=== PATIENT | male | born 1950 | race Caucasian/White ===

== ENCOUNTER → 2017-01-01 | Outpatient (CLI) | payer BC, MEDICARE | END | disposition home or self-care (01) | LOC: GMAB 14:12 | PROVIDERS: ATTEND Family Medicine | DX: I10 Essential (primary) hypertension (principal); R97.20 Elevated prostate specific antigen [PSA] ==

== ENCOUNTER → 2017-07-04 | Outpatient (CLI) | payer BC, MEDICARE | END | disposition home or self-care (01) | LOC: GMAB 13:20 | PROVIDERS: ATTEND Family Medicine | DX: R97.20 Elevated prostate specific antigen [PSA] (principal) ==

== ENCOUNTER → 2017-11-13 | Outpatient (CLI) | payer BC, MEDICARE | END | disposition home or self-care (01) | LOC: GMAB 14:43 | PROVIDERS: ATTEND Family Medicine | DX: N18.4 Chronic kidney disease, stage 4 (severe) (principal) ==

== ENCOUNTER → 2018-02-06 | Outpatient (CLI) | payer MEDICARE, OTHER | LOC: GMAB 13:38 | PROVIDERS: ATTEND Family Medicine | DX: R97.20 Elevated prostate specific antigen [PSA] (principal) ==

== ENCOUNTER 2018-06-20 22:54 | Emergency (ER) | payer MEDICARE, OTHER ==
[2018-06-20 23:13] VITALS: TEMP 96.9
[2018-06-20] MEDS ORDERED: CIPROFLOXACIN 500 MG TAB PO ONE (23:21)
[2018-06-20] MEDS ORDERED: metroNIDAZOLE 500 MG TAB PO ONE (23:21)
--- NOTE | 2018-06-20 23:24 | ED.PDOC ---
History of Present Illness - General Chief Complaint: Abdominal Pain Stated Complaint: abd pain Time Seen by Provider: 06/20/18 22:58 Source: patient Exam Limitations: no limitations - History of Present Illness Initial Comments: the patient is 67-year-old male presenting to the emergency room secondary to getting a foreign object stuck up his rectum. The patient had pushed a partially inflated six-inch child's toy balloon up his rectum and was unable to retrieve it. He tried for about an hour but was unable to. By the time he arrived here he was having some mild bleeding. He denies any blood thinner use. He is not having a lot of pain. No real abdominal pain. Timing/Duration: 1-3 hours Severity: moderate Improving Factors: nothing Worsening Factors: nothing Associated Symptoms: denies symptoms Allergies/Adverse Reactions: Allergies NO KNOWN ALLERGY Allergy (Verified 06/20/18 23:13) Home Medications: Ambulatory Orders Ciprofloxacin [Cipro] 500 mg PO BID #14 tab 06/20/18 Metronidazole 500 mg PO TID #14 tab 06/20/18 Review of Systems - Review of Systems Constitutional: States: no symptoms reported EENTM: States: no symptoms reported Respiratory: States: no symptoms reported Cardiology: States: no symptoms reported Gastrointestinal/Abdominal: States: see HPI Genitourinary: States: no symptoms reported Musculoskeletal: States: no symptoms reported Skin: States: no symptoms reported Neurological: States: no symptoms reported Endocrine: States: no symptoms reported All other Systems: No Change from Baseline Past Medical History (General) - Patient Medical History Hx Hypertension: Yes Hx Diabetes: No Hx Cancer: No Hx Hepatitis C: No - Vaccination History Hx Tetanus, Diphtheria Vaccination: No Hx Influenza Vaccination: No Hx Pneumococcal Vaccination: No Immunizations Up to Date: No - Social History Hx Chewing Tobacco Use: Yes - DIPS Hx Alcohol Use: Yes - OCC Hx Substance Use: No Hx Substance Use Treatment: No Hx Depression: No Family Medical History - Family History Mother Family History: Unknown Physical Exam - Physical Exam General Appearance: Alert, Comfortable, No apparent distress Eye Exam: bilateral normal Ears, Nose, Throat: hearing grossly normal Neck: full range of motion, supple Respiratory: no respiratory distress, no accessory muscle use Cardiovascular/Chest: normal peripheral pulses, no edema Peripheral Pulses: radial,right: 2+, radial,left: 2+ Gastrointestinal/Abdominal: non tender, soft Rectal Exam: other - ball palpable within the rectum. Approximately 10 cc of blood loss upon arrival. Back Exam: no CVA tenderness, no vertebral tenderness Extremity: normal range of motion, non-tender, normal inspection, no pedal edema , normal capillary refill Neurologic: dietician II-XII nml as tested, alert, normal mood/affect, oriented x 3 Skin Exam: normal color Comments: Vital Signs - 24 hr 06/20/18 23:10 Temperature 96.9 F L Pulse Rate [ 69 MONITOR] Respiratory 20 Rate Blood Pressure 157/80 [LA] O2 Sat by Pulse 97 Oximetry Progress - Progress Progress: 06/20/18 23:25 the patient is a 67-year-old male for object lodged in his rectum. After risks and benefits of obstruction were explained the patient agreed to proceed. Under direct visualization a #11 scalpel was used to puncture the ball to allow the rest of the air out. Subsequently elaina clamps were used to grasp the ball and extract it. The patient had another 5-10 cc of bleeding. He does appear to be hemostatic at the time of discharge. He was given a dose of metronidazole and ciprofloxacin. He will be placed on these for the next 5 days. He needs to monitor for any evidence of infection. ER warnings were given. The patient tolerated the procedure well. Departure - Departure Clinical Impression: Foreign body anus/rectum Qualifiers: Encounter type: initial encounter Qualified Code(s): T18.5XXA - Foreign body in anus and rectum, initial encounter Disposition: Discharge to Home or Self Care Condition: Fair Departure Forms: ED Discharge - Pt. Copy, Patient Portal Self Enrollment Diet: regular diet Activity: increase activity as tolerated Referrals: Navin Martin MD [Primary Care Provider] - 1-2 Weeks Prescriptions: Ciprofloxacin [Cipro] 500 mg PO BID #14 tab Metronidazole 500 mg PO TID #14 tab Home Medications: Ambulatory Orders Ciprofloxacin [Cipro] 500 mg PO BID #14 tab 06/20/18 Metronidazole 500 mg PO TID #14 tab 06/20/18 Additional Instructions: take antibiotics as directed. If he starts developing fever or abdominal pain that he will need to be reevaluated. avoid similar activities for at least the next month to prevent additional injury. Keep routine follow up with primary care doctor. ER warnings were given
[2018-06-20 23:38] VITALS: BP 131/78; O2SAT 98
== END 2018-06-20 23:37 | disposition home or self-care (01) ==
LOC: ER 22:54
DX: T18.5XXA Foreign body in anus and rectum, initial encounter (principal); K62.5 Hemorrhage of anus and rectum; I10 Essential (primary) hypertension; F17.220 Nicotine dependence, chewing tobacco, uncomplicated; X58.XXXA Exposure to other specified factors, initial encounter; Y92.9 Unspecified place or not applicable

== ENCOUNTER → 2018-08-28 | Outpatient (CLI) | payer MEDICARE, OTHER | LOC: GMAE 13:47 | PROVIDERS: ATTEND Family Medicine | DX: R97.20 Elevated prostate specific antigen [PSA] (principal); I10 Essential (primary) hypertension ==

== ENCOUNTER → 2019-11-05 | Outpatient (CLI) | payer MEDICARE, OTHER | LOC: GMAE 12:14 | PROVIDERS: ATTEND Family Medicine | DX: I10 Essential (primary) hypertension (principal); E78.2 Mixed hyperlipidemia; R97.20 Elevated prostate specific antigen [PSA] ==

== ENCOUNTER → 2020-05-25 | Outpatient (CLI) | payer MEDICARE, OTHER | LOC: GMAE 15:19 | PROVIDERS: ATTEND Family Medicine | DX: R97.20 Elevated prostate specific antigen [PSA] (principal); I10 Essential (primary) hypertension; E78.2 Mixed hyperlipidemia ==

== ENCOUNTER → 2020-12-22 | Outpatient (CLI) | payer MEDICARE, OTHER | LOC: GMAE 13:46 | PROVIDERS: ATTEND Family Medicine | DX: R97.20 Elevated prostate specific antigen [PSA] (principal); I10 Essential (primary) hypertension ==